=== PATIENT | male | born 1950 | race Caucasian/White ===

== ENCOUNTER 2020-07-23 06:14 | Observation (INO) ==
--- NOTE | 2020-06-24 16:26 | PAT Medication Instructions ---
Medication Instructions Date of Service June 24, 2020 Home Medications aspirin [Baby Aspirin] 81 mg PO QAM atorvastatin 40 mg PO PM metoprolol tartrate 25 mg PO BID multivitamin 1 cap PO QAM DO NOT take the morning of surgery multivitamin 1 cap PO QAM Take morning of surgery With a small sip of water, OTHERWISE NOTHING TO EAT OR DRINK AFTER MIDNIGHT: aspirin [Baby Aspirin] 81 mg PO QAM metoprolol tartrate 25 mg PO BID Take evening before surgery atorvastatin 40 mg PO PM metoprolol tartrate 25 mg PO BID Other Notes If you have any questions please call us at [phone] or [phone] or [phone] or [phone]
--- NOTE | 2020-06-26 11:10 | Anesthesiology Consultation ---
Date of Service June 26, 2020 Assessment & Plan (1) Encounter for pre-operative examination: COVID Status: As of 06/26 assessment, patient denies travel to endemic area, known exposure/sick contacts, or symptoms of COVID19. Patient instructed that they and their household members must follow strict social distancing guidelines, wear a mask in public and avoid travel for 14 days prior to surgery. Preoperative COVID19 testing to be completed prior to surgery per surgeon's a rrangements. Patient made aware to self-isolate as much as possible between COVID testing and surgery. Cardiology Clearance 06/16/20 = " he can easily do between 410 METS of activity with no exertional symptoms. Blood pressure earlier today was well controlled at [facility] office, mildly elevated here. Patient states that his blood pressure at home normally runs between [id number] systolic and 7080 diastolics. I have advised patient to continue to monitor blood pressure at home and call office next week with blood pressure readings. No further cardiac work-up needed prior to total knee arthroplasty." Chart Review Chart Review: Acceptable Risk for Surgery and Patient seen in Pre Admission Testing Teaching & Discussion Instructed NPO after midnight before surgery, except medications with 15 cc of water. Medication instructions provided according to the PAT guidelines. History Surgery Operation Date: 07/23/20 11:35 Proposed Procedures p Left Total Knee Arthroplasty - Immanuel Coronel MD Height/Weight Height: 5 ft 8 in Weight: 116.4 kg Allergies Allergy/AdvReac Type Severity Reaction Status Date / Time No Known Allergies Allergy Verified 06/24/20 09:47 Medications Home Medications Medication Instructions Recorded Confirmed Last Taken aspirin [Baby Aspirin] 81 mg PO QAM 06/24/20 06/24/20 Unknown atorvastatin 40 mg PO PM 06/24/20 06/24/20 Unknown metoprolol tartrate 25 mg PO BID 06/24/20 06/24/20 Unknown multivitamin 1 cap PO QAM 06/24/20 06/24/20 Unknown cetirizine 5 mg PO DAILY PRN 06/26/20 06/26/20 Unknown Past Medical History Medical History Gallstone History of Mohs micrographic surgery for skin cancer on chest Hyperlipidemia Hypertension Osteoarthritis Sleep apnea Very mild per patient, does not use CPAP Exercise / Class Metabolic Activity II 4-5 Yardwork/Stairs/Walk up hill (Denies CP or SOB with 1 FOS) Past Surgical History Surgical History History of cardiac cath 2001- [facility] 4 stents placed- unsure if bare metal or drug eluting History of cervical spinal surgery Fusion, 2007 History of colonoscopy History of excision of pilonidal cyst History of tonsillectomy and adenoidectomy History of tooth extraction Past Anesthesia History No Hx of Anesthesia Complications and No Family Hx of Anesthesia Complications History of PONV No Hx of PONV and No Hx of Motion Sickness Social History Smoking Status: Former smoker Do You Dip or Chew Tobacco: No (history of) Smoking End Date: quit at 20 years old Hx Alcohol Use: No Hx Substance Use: No substance use type: does not use Review of Systems Pt denies any recent chest pain, shortness of breath, palpitations, cough, fever, URI, or uncontrolled acid reflux. Physical Exam Vital Signs BP: 144/84 (monitoring at home for cardiology currently) P: 63bpm SPO2: 98% RA T: 98.0 F R: 16 Constitutional + obese ENMT Mouth: + dentures (partials, but does not wear) and + chipped teeth; no loose teeth Thyromental Distance: > or= 3.5 Finger Breadths Mallampati Class: I Neck + thick neck and + limited neck extension (mild) Respiratory normal respiratory effort Auscultation: lungs clear to auscultation bilaterally Cardiovascular Rate/Rhythm: regular rate and regular rhythm Heart Sounds: no murmur Testing Laboratory Results PT 10.9 Seconds (9.0-12.0) 06/26/20 11:53 INR 1.0 (0.9-1.1) 06/26/20 11:53 APTT 29.1 Seconds (21.0-31.0) 06/26/20 11:53 Hemoglobin A1c 5.5 % (4.5-5.6) 06/26/20 11:53 Urine Color Dark Yellow 06/26/20 11:53 Urine Appearance Clear (Clear) 06/26/20 11:53 Urine pH 7.5 (4.5-7.5) 06/26/20 11:53 Ur Specific [place] 1.016 (1.000-1.030) 06/26/20 11:53 Urine Protein Negative (Negative) 06/26/20 11:53 Urine Glucose (UA) Negative (Negative) 06/26/20 11:53 Urine Ketones Negative (Negative) 06/26/20 11:53 Urine Nitrite Negative (Negative) 06/26/20 11:53 Ur Leukocyte Esterase Negative (Negative) 06/26/20 11:53 Blood Type O Negative 06/26/20 11:53 Antibody Screen NEGATIVE 06/26/20 11:53 05/26/20 WBC: 7.26 H/H: 14.9/46.6 PLATELETS: 214 SODIUM: 140 POTASSIUM: 5.1 CHLORIDE: 103 CO2: 27 BUN: 18 CREATININE: 1.10 GLUCOSE: 93 Electrocardiogram Date: 06/16/20 Findings: + NSR @ (63bpm) Chest X-Ray Date: 06/26/20 Findings: + NAD Echocardiogram Date: 06/07/17 EF: 60% LV Function: normal RWMA: + none Other Findings: + LVH (mild concentric) and + diastolic dysfunction (grade I) Valvular Disease: + no significant valvular disease
[2020-06-26 12:19] LABS: Appearance Urine Clear (Clear); Bilirubin Urine Negative (Negative); Blood Urine Negative (Negative); Color Urine Dark Yellow; Glucose Urine UA Negative (Negative); Ketones Urine Negative (Negative); Leukocyte Esterase Urine Negative (Negative); Nitrite Urine Negative (Negative); Protein Urine Negative (Negative); Specific Gravity Urine 1.016 (1.000-1.030); Urobilinogen Urine Negative (Negative); pH Urine 7.5 (4.5-7.5)
--- NOTE | 2020-06-26 12:22 | XRay Report ---
XR chest Pre-admission PA/Lat HISTORY: Preop. COMPARISON: None. FINDINGS: The lungs are clear. Cardiac silhouette is normal in size. No pleural effusions. No pneumot horax. Cervical spinal fusion hardware is noted. IMPRESSION: No acute process. ACT 112: Negative or not required by law. Electronically signed by: Matty Bernal M.D. 06/26/2020 12:21 PM
[2020-06-26 12:27] LABS: Partial Thromboplastin Time 29.1 Seconds (21.0-31.0); Prothrombin Time 10.9 Seconds (9.0-12.0)
[2020-06-26 12:28] LABS: Estimated Average Glucose 111 mg/dl; Hemoglobin A1C 5.5 % (4.5-5.6)
--- NOTE | 2020-07-22 19:14 | History and Physical Report ---
DATE OF ADMISSION: 07/23/2020 CHIEF COMPLAINT: Chronic left knee pain and instability. HISTORY OF PRESENT ILLNESS: This is a 70-year-old male patient of Dr. Coronel'vaughn complaining of chronic left knee pain and instability, longstanding, now progressively getting worse. The patient has failed conservative treatment including anti-inflammatories, home exercise program and the use of a brace. The patient has increased pain with weightbearing activities and his pain does interfere with his activities of daily living. The patient has been diagnosed with end-stage osteoarthritis per clinical and radiographic exams and wishes to proceed with a left total knee arthroplasty. PAST MEDICAL HISTORY: Hypertension, hypercholesterolemia, osteoarthritis, neck problems, sciatica, obesity, dental issues. SOCIAL HISTORY: A lifelong smoker, quit in 1969. No alcohol use since 2003. PAST SURGICAL HISTORY: Pilonidal cyst, stenosis back surgery at the C-spine level, tonsillectomy and left ankle fracture. FAMILY HISTORY: Noncontributory. REVIEW OF SYSTEMS: Chronic left knee pain and instability. Otherwise, denies any shortness of breath, chest pain, nausea, vomiting or other joint complaints. MEDICATIONS: 1. Zocor 20 mg daily. 2. Metoprolol 25 mg daily. 3. Zetia 10 mg daily. 4. Aspirin 325 mg daily. 5. Zyrtec as needed. ALLERGIES: No known drug allergies. PHYSICAL EXAMINATION: GENERAL: Well-developed, well-nourished 70-year-old male in no acute distress. He is alert and oriented x3 and pleasant. HEENT: Normocephalic, atraumatic. Extraocular motions are intact. Pupils are equal and reactive to light. HEART: Regular rate and rhythm, no murmurs. LUNGS: Clear. ABDOMEN: Soft, nontender, bowel sounds present. EXTREMITIES: Left lower extremity reveals a neutral alignment. Range of motion 0-120. Medial joint line tenderness, positive Rose, positive mild effusion, 5/5 strength with pain. NEUROLOGICALLY AND NEUROVASCULARLY: He is intact in his left lower extremity. DIAGNOSES: Left knee end-stage osteoarthritis, hypertension, hypercholesterolemia, osteoarthritis, neck problems, sciatica, obesity, dental issues. PLAN: The patient was advised of his diagnosis. Indications, risks, benefits, postop course have all been reviewed. The patient wished to proceed with a left total knee arthroplasty. Necessary consent forms, preoperative testing and clearances will be obtained. [facility]
[~2020-07-23 06:14] MED LIST: ACETAMINOPHEN 500 MG TAB PO SCH; CeleBREX 200 MG CAP PO SCH; FAMOTIDINE 20 MG TAB PO SCH; GABAPENTIN 300 MG CAP PO SCH; LR 500ML BOLUS, THEN 15ML/HR IV SCH; METOCLOPRAMIDE HCL 10 MG TABLET PO SCH; ROPIVACAINE 0.5% HCL/PF 150 MG, BUPIVACAINE 0.5% MPF 30 ML, EPINEPHrine 30MG/30ML (OR U... INFIL SCH; TRANEXAMIC ACID 1,000 MG **IV Intra-op IV SCH; TRANEXAMIC ACID 1,000 MG **IV Pre-op IV SCH; dexAMETHasone 4 MG TAB PO SCH
[2020-07-23] MEDS ORDERED: ROPIVACAINE 0.5% 5 MG/ML 30 ML VIAL ONE (06:37)
[2020-07-23] MEDS ORDERED: BUPIVACAINE 0.5 % 5 MG/1 ML PF 10ML VIAL ONE (06:37)
[2020-07-23] MEDS ORDERED: MIDAZOLAM HCL 1 MG/ML 2ML VIAL ONE (06:39)
[2020-07-23] MEDS ORDERED: PROPOFOL IV EMULSION 10 MG/ML 20 ML VIAL IV ONE (06:46)
[2020-07-23] MEDS ORDERED: ONDANSETRON INJ 2 MG/ML 2 ML VIAL ONE (06:46)
[2020-07-23] MEDS ORDERED: GLYCOPYRROLATE 0.2 MG/ML VIAL ONE (06:46)
[2020-07-23] MEDS ORDERED: LIDOCAINE HCL 2% 2 ML VIAL/AMP(20MG/ML) INFIL ONE (06:46)
--- NOTE | 2020-07-23 07:24 | History & Physical Bridge Note ---
Date of Service July 23, 2020 History & Physical Bridge Note I have examined the patient, reviewed the History & Physical and in the interval since the performance of the History & Physical I have noted the following changes of clinical significance: no changes noted
[2020-07-23] MEDS ORDERED: HYDROmorphone INJ 2 MG/ML SYR/VIAL IV PRN (08:10)
[2020-07-23] MEDS ORDERED: ePHEDrine sulfate 50 MG/ML AMP IV PRN (08:10)
[2020-07-23] MEDS ORDERED: ONDANSETRON INJ 2 MG/ML 2 ML VIAL IV PRN ×2 (08:10→12:31)
[2020-07-23] MEDS ORDERED: METOCLOPRAMIDE HCL INJ 5 MG/ML 2 ML VIAL IV PRN (08:10)
[2020-07-23] MEDS ORDERED: PROMETHAZINE HCL 12.5 MG in SODIUM CHLORIDE 0.9% 50 ML IV PRN (08:10)
[2020-07-23] MEDS ORDERED: ATROPINE SULFATE 0.1 MG/ML 10ML SYR IV PRN (08:10)
[2020-07-23] MEDS ORDERED: fentaNYL citrate 100 MCG/2 ML VIAL IV PRN (08:10)
[2020-07-23] MEDS ORDERED: BACITRACIN INJ 50,000 UNIT VIAL ONE (08:25)
[2020-07-23] MEDS ORDERED: ORTHO JOINT ANESTHETIC ONE (08:25)
[2020-07-23] MEDS: ceFAZolin 2000MG 2,000 MG/15 ML SYR IV SCH ×3 (08:45→15:15)
[2020-07-23] MEDS ORDERED: ePHEDrine sulfate 50 MG/ML SYR ONE (09:13)
--- NOTE | 2020-07-23 10:40 | Operative Report ---
Post Operative Report Pre & Post Diagnosis Operation Date: 07/23/20 08:40 Pre-Op Diagnosis: Left Knee Osteoarthritis, obesity BMI 38.6 Post-Op Diagnosis: Left Knee Osteoarthritis, obesity BMI 38.6 I identified the patient and participated in the time-out.: Yes Procedure Operation Date: 07/23/20 08:40 Actual Procedures p Left Total Knee Arthroplasty(Left), lateral release- Immanuel Coronel MD Surgeon Immanuel Coronel MD Independent Consultant Matthew TAM Estimated Blood Loss 5 Findings Consistent with Post-Op Diagnosis Specimens Bone cuts Drains 2 Hemovac Anesthesia Type MAC Spinal Regional Complications none Disposition Accompanied Patient To Recovery: No Disposition: Recovery Room Indications 70-year-old male with chronic progressive osteoarthritis of both his knees. Left is worse than right. Left knee has tricompartmental osteoarthritis [id number] medial compartment subluxation inferior medial on the tibia. Patient has large patellar osteophytes. Description of Procedure Patient taken to the operating room placed supine on the operating table and anesthetized under spinal MAC regional anesthesia. Exam under anesthesia demonstrated 15 degree flexion contracture flexion to 115 degrees moderate effusion moderate obesity of the leg. A pneumatic tourniquet was placed about the thigh of the left lower extremity. The left lower extremity was prepped and draped in usual fashion. Leg was elevated exsanguinated with an Esmarch bandage and the pneumatic was raised to 325 mm mercury. An anterior incision was made across the left knee. The skin was incised longitudinally subcutaneous flaps were elevated and an incision was made through the medial retinaculum extending up into the mid third of the quadriceps tendon and extended down to the medial tibial tubercle. Intra-articular findings demonstrated [id number] medial and lateral compartment with large patellofemoral osteophytes. 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 The knee was exposed by excising the infrapatellar fat pad, excising the meniscal remnants. Any inflamed synovial tissue was resected. The fat pad over the anterior femur was resected for placement of the component in that area. The lateral synovial bands were release. Appropriate releases were performed to balance ligaments. The femur was exposed. The custom femoral cutting block was pinned in position. The distal femoral cutting block was applied. The distal femoral cut was made with the oscillating saw. The size 10, 4-in-1 cutting block was placed. The anterior and posterior chamfer cuts were made. The knee was extended and a subperiosteal peel lateral release was performed around the patella. The patella width was measured and width was reproduced using freehand cut technique. The 35 x 9 millimeter symmetrical patella was used. 3 drill holes are made for the pegs. The tibia was exposed. A custom tibial cutting block was positioned and drill holes were made for the cutting guide. Cutting guide was placed and the proximal cut was made with the oscillating saw. All osteophytes were resected. The lamina client experience specialist was used to assess ligamentous balance and the ligaments were balanced in extension and flexion. This required a medial and posterior medial release. The tibia was reexposed and measured for a size G tibial component. This was externally rotated in line with the tibial tubercle and the fixation pins were drilled. The proximal tibia was fashioned with the drill and punch. The size 10 CR femoral trial was inserted. The trial MC inserts were used. The 12 mm insert gave balanced ligaments through full range of motion. The patella tracked laterally so I did a lateral release l eaving the synovium intact and the patella tracked centrally.. the trials were removed. The orthomix anesthetic cocktail was injected per protocol. The knee was then copiously irrigated with pulsatile lavage antibiotic solution with bacitracin. The final components were cemented with Simplex cement. The final components were [employer] persona size 10 CR standard left femur, G tibia, 12 MC polyethylene tibial insert, 35 x 9 symmetrical patella.. While the cement cured with the knee in full extension the Betadine soak was used per protocol. After the cement cured, the knee joint was copiously irrigated with antibiotic solution with bacitracin. 2 drains were brought out laterally and connected to a Hemovac. The quadriceps tendon and medial retinaculum were closed with interrupted [id number] #1 Vicryl sutures. The knee was taken through a full range of motion and repair was secure. Knee had 0 through 130 degrees range of motion. The subcutaneous tissues were closed with 2-0 Vicryl sutures and skin was closed with lavonne. Sterile dressings were applied and the patient tolerated the procedure well. Matthew TAM my physician assistant office manager, assisted in soft tissue retraction instrument management leg positioning the closure and will participate in the postoperative care of the patient. I attest to the content of the Intraoperative Record and any orders documented therein. Any exceptions are noted below.
--- NOTE | 2020-07-23 11:32 | XRay Report ---
XR knee LT 1 or 2V routine CLINICAL HISTORY: Surgical Post Op COMPARISON: None. DISCUSSION: There are postsurgical changes of a total left knee arthroplasty and patellar resurfacing . The femoral tibial components appear well seated. Overlying skin lavonne and surgical drains are vi sualized. IMPRESSION: Postsurgical changes of a total left knee arthroplasty. ACT 112: Negative or not required by law. Electronically signed by: Kike Middleton M.D. 07/23/2020 11:31 AM
--- NOTE | 2020-07-23 11:48 | Anesthesiology Progress Note ---
Date of Service July 23, 2020 Anesthesia Post Procedure Vital Signs Vital Signs: Temp Pulse Pulse Resp BP BP Pulse Ox 07/23/20 11:40 36.3 C L 88 15 121/78 93 07/23/20 11:30 88 16 121/82 93 07/23/20 11:20 87 16 124/80 93 07/23/20 11:10 92 H 17 121/76 93 07/23/20 11:05 37.2 C 95 H 26 H 120/77 94 07/23/20 07:14 87 18 163/99 H 97 07/23/20 06:38 37.0 C 76 18 153/91 H 98 Pain Intensity Left Knee: Pain Intensity: 0 Transfer of Care Handoff Completed per policy Notes Mental Status: alert / awake / arousable and participated in evaluation Patient Amnestic to Procedure: Yes Nausea / Vomiting: adequately controlled Pain: adequately controlled Airway Patency, RR, SpO2: stable & adequate BP & HR: stable & adequate Hydration State: stable & adequate Neuraxial Anesthesia: was administered and sensory block is resolving Anesthetic Complications: no major complications apparent
[2020-07-23] MEDS ORDERED: HYDROmorphone INJ 0.5 MG/0.5 ML SYR IV PRN (12:31)
[2020-07-23] MEDS ORDERED: oxyCODONE HCL IR 5 MG TAB (IMMEDIATE RELEASE) PO PRN (12:31)
[2020-07-23] MEDS ORDERED: CETIRIZINE HCL 10 MG TABLET PO PRN (12:31)
[2020-07-23] MEDS ORDERED: MAGNESIUM HYDROXIDE SUSP 30 ML UDC PO PRN (12:31)
[2020-07-23] MEDS ORDERED: NALOXONE HCL 0.4 MG/1 ML VIAL/CARP IV PRN (12:31)
[2020-07-23] MEDS ORDERED: bisacodyL 10 MG SUPP PR PRN (12:31)
--- NOTE | 2020-07-23 13:05 | Consultation ---
Date of Consultation July 23, 2020 Assessment & Plan (1) Status post total knee replacement, left: S/P L TKA by Dr. Coronel POD #0 EBL: 5 ml hemovac: 20ml tolerated procedure well pain/wound management per ortho activity and therapy as directed by ortho encourage incentive spirometry monitor H&H (preop hgb 14.9) (2) CAD (coronary artery disease): no CP or SOB continue ASA, statin, metoprolol (3) Hypertension: BP controlled continue metoprolol, monitor (4) Hyperlipidemia: continue statin DVT ppx: ASA BID per ortho Disposition: per primary Follow up: PCP Dr. Sofia upon discharge Pt was seen and examined in collaboration with Dr. Hoffman, please see addendum Starting pt will be under the care of Dr. Storey Thank you for this consultation. We will follow the patient with you during their hospital stay. You can reach a member of the [facility] Hospitalist Team 08/05 via pager @ [phone]. Supervising Physician Co-Signing Physician Notes Attending addendum: The patient was seen and examined in medical floor He is a status post left knee arthroplasty He does not have any complaint of knee pain and the numbness involving the left lower extremity Denies any other significant symptoms ON Examination He is obese and sitting at the edge of the bed without any distress Hemodynamically stable Chest-clear to auscultate bilaterally Heart-S1-S2, regular Abdomen-benign Extremities-trace edema bilaterally His labs, imaging studies and EKG reviewed Remains stable medically Agree with assessment and plan as outlined above by BAHMAN Lindquist Dr History of Present Illness Requesting Physician: Dr. Coronel Reason for Consultation: Postop medical management Attending Physician: Immanuel Coronel MD History of Present Illness This is a 70-year-old male with significant past medical history of CAD with history of PCI in 2002, HTN, HLD who presents for elective total knee arthroplasty secondary to osteoarthritis. He tolerated procedure well. is at bedside. He offers no postoperative complaints or concerns. He denies any fever, chills, sweats, lightheadedness, dizziness, chest pain, shortness breath, cough, nausea, vomiting, abdominal pain, change in bowel or urinary habits. He does follow with [facility] cardiology. He has been doing well from a cardiac standpoint and remains very active. He had an echocardiogram 05/2017 which revealed EF 60% with grade 1 diastolic dysfunction. He uses a recumbent bike 3 times a week without experiencing exertional symptoms. He also admits to mild history of obstructive sleep apnea but he does not use CPAP. His blood pressure is well controlled on metoprolol. Allergies Allergy/AdvReac Type Severity Reaction Status Date / Time No Known Allergies Allergy Verified 07/23/20 06:35 Home Medications Home Medications Medication Instructions Recorded Confirmed Type aspirin [Baby Aspirin] 81 mg PO QAM 06/24/20 07/23/20 History metoprolol tartrate 25 mg PO BID 06/24/20 07/23/20 History multivitamin 1 cap PO QAM 06/24/20 07/23/20 History cetirizine 5 mg PO DAILY PRN 06/26/20 07/23/20 History atorvastatin 40 mg PO HS 07/23/20 07/23/20 History Patient History Medical History (Updated 07/23/20 @ 13:00 by Rowena Fernandes PA-C) CAD (coronary artery disease) Gallstone History of Mohs micrographic surgery for skin cancer on chest Hyperlipidemia Hypertension Osteoarthritis Sleep apnea Very mild per patient, does not use CPAP Surgical History (Updated 07/23/20 @ 13:00 by Rowena Fernandes PA-C) History of cardiac cath 2001- [place] 4 stents placed- unsure if bare metal or drug eluting History of cervical spinal surgery Fusion, 2007 History of colonoscopy History of excision of pilonidal cyst History of tonsillectomy and adenoidectomy History of tooth extraction Family History Mother Cancer Colon and uterus Father Coronary heart disease Hypertension Social History Smoking Status: Former smoker Smoking End Date: quit at 20 years old; Second Hand Exposure: Yes (as a child, and worked at [employer]); Do You Dip or Chew Tobacco: No (history of); Hx Alcohol Use: No Hx Substance Use: No Preferred Language: Egyptian Communication Ability: Effective Beliefs That Will Affect Care: None Current Living Situation: Spouse Current Living Situation Comment: Feels Safe at Home: Yes Safety Concerns: Feels Safe At This Time Assistive Devices: Glasses and Walker Assistive Devices Comment: partial but doesn't use it Review of Systems Review of Systems: All systems reviewed & are unremarkable except as noted in HPI & below Physical Exam Physical Exam: Constitutional: WD/WN, M, vitals as above, NAD, sitting up in bed, pleasant, conversing easily Head: Normocephalic, Atraumatic Eyes: PERRL, conjunctivae normal, anicteric sclerae ENMT: external ear and nose normal, oropharynx normal Neck: trachea midline, no thyromegaly normal visual inspection Respiratory: normal respiratory effort, lungs clear to auscultation, no wheeze, rales, rhonchi. Normal insp/exp effort, no accessory muscle use Cardiovascular: RRR, no murmur, no edema Vessels: no JVD or carotid bruit Chest: normal inspection of chest Abdomen: normal bowel sounds, soft, nontender, no hepatosplenomegaly Musculoskeletal: no cyanosis or clubbing, L TKA dressing CDI, hemovac in place Skin: no rashes, warm and dry normal turgor Neurologic: PERRL, EOMI, accommodation nl, no face palsy, no dysarthria CN's II-XI intact bilaterally and moves all extremities Psychiatric: A+Ox3, euthymic affect Lymphatic: no cervical or axillary lymphadenopathy : deferred Results & Data ([facility]) Vital Signs (Past 12 Hours) Vital Signs Temp Pulse Pulse Pulse Resp BP BP 07/23/20 12:05 36.9 C 68 16 129/78 07/23/20 11:50 87 14 122/79 07/23/20 11:40 36.3 C L 88 15 121/78 07/23/20 11:30 88 16 121/82 07/23/20 11:20 87 16 124/80 07/23/20 11:10 92 H 17 121/76 07/23/20 11:05 37.2 C 95 H 26 H 120/77 07/23/20 07:14 87 18 163/99 H 07/23/20 06:38 37.0 C 76 18 153/91 H Pulse Ox 07/23/20 12:05 92 07/23/20 11:50 93 07/23/20 11:40 93 07/23/20 11:30 93 10/08/20 11:20 93 07/23/20 11:10 93 07/23/20 11:05 94 07/23/20 07:14 97 07/23/20 06:38 98 Laboratory Results Preoperative lab work 06/26/2020 A1c: 5.5 05/26 CMP: BUN 18, creatinine 1.1, sodium 140, K5.1, glucose 93 Diagnostic Findings CXR: FINDINGS: The lungs are clear. Cardiac silhouette is normal in size. No pleural effusions. No pneumothorax. Cervical spinal fusion hardware is noted. IMPRESSION: No acute process. L knee xray: IMPRESSION: Postsurgical changes of a total left knee arthroplasty. Medications Administered Discontinued Medications Acetaminophen (Acetaminophen 500 Mg Tab) 1,000 mg PO PREOP CHARLY Stop: 07/23/20 18:00 Last Admin: 07/23/20 06:55 Dose: 1,000 mg Documented by: [id number] Bacitracin (Bacitracin Inj 50,000 Unit Vial) Confirm Administered Dose 50,000 units .ROUTE .[facility] Stop: 07/23/20 08:26 Last Admin: 07/23/20 10:35 Dose: 50,000 units Documented by: [id number] Celecoxib (Celebrex 200 Mg Cap) 200 mg PO PREOP CHARLY Stop: 07/23/20 18:00 Last Admin: 07/23/20 06:56 Dose: 200 mg Documented by: [id number] Dexamethasone (Dexamethasone 4 Mg Tab) 8 mg PO PREOP CHARLY Stop: 07/23/20 18:00 Last Admin: 07/23/20 06:55 Dose: 8 mg Documented by: [id number] Famotidine (Famotidine 20 Mg Tab) 20 mg PO PREOP CHARLY Stop: 07/23/20 18:00 Last Admin: 07/23/20 06:56 Dose: 20 mg Documented by: [id number] Gabapentin (Gabapentin 300 Mg Cap) 300 mg PO PREOP CHARLY Stop: 07/23/20 18:00 Last Admin: 07/23/20 06:56 Dose: 300 mg Documented by: [id number] Lactated Ringer's (Lr) 1,000 mls @ 15 mls/hr IV .Q24H CHARLY Stop: 07/23/20 18:00 Last Infusion: 07/23/20 08:47 Dose: 0 mls/hr Documented by: [id number] Admin: 07/23/20 06:48 Dose: 15 mls/hr Documented by: [id number] Cefazolin Sodium (Ancef 2000mg) 2,000 mg in 15 mls @ 3.75 mls/min IV PREOP CHARLY; Protocol Stop: 07/23/20 18:00 Last Admin: 07/23/20 08:45 Dose: 3.75 mls/min Documented by: [id number] Tranexamic Acid (Tranexamic Acid / 0.7% Nacl) 1,000 mg in 100 mls @ 600 mls/hr IV TODAY@[facility] Stop: 07/23/20 18:00 Last Infusion: 07/23/20 08:46 Dose: 0 mls/hr Documented by: [id number] Admin: 07/23/20 08:20 Dose: 600 mls/hr Documented by: [id number] Tranexamic Acid (Tranexamic Acid / 0.7% Nacl) 1,000 mg in 100 mls @ 600 mls/hr IV TODAY@06[facility] Stop: 07/23/20 18:00 Last Infusion: 07/23/20 12:33 Dose: 0 mls/hr Documented by: [id number] Admin: 07/23/20 10:25 Dose: 600 mls/hr Documented by: [id number] Ropivacaine 150 mg/Bupivacaine HCl 30 ml/Epinephrine HCl 0.15 mg/Ketorolac Tromethamine 30 mg/Dexamethasone 4 mg/ Ketamine HCl 10 mg/ Clonidine HCl 100 mcg/ Sodium Chloride 93.35 mls @ 0 mls/hr INFIL TODAY@06[facility] Stop: 07/23/20 06:01 Last Admin: 07/23/20 10:35 Dose: 93.35 mls/hr Documented by: [id number] Metoclopramide HCl (Metoclopramide Hcl 10 Mg Tablet) 10 mg PO PREOP CHARLY Stop: 07/23/20 18:00 Last Admin: 07/23/20 06:56 Dose: 10 mg Documented by: [id number] Miscellaneous (Ortho Joint Anesthetic ) Confirm Administered Dose 1 ea .ROUTE .[facility] Stop: 07/23/20 08:26 Last Admin: 07/23/20 10:35 Dose: Not Given Documented by: [id number] ECG Rate (beats per minute): 63 Rhythm: normal sinus
[2020-07-23] MEDS: ACETAMINOPHEN 500 MG TAB PO SCH ×2 (14:13→21:41)
[2020-07-23] MEDS: SODIUM CHLORIDE 0.9% 1000ML 1,000 ML IV SCH ×2 (14:13→23:56)
[2020-07-23] MEDS: FERROUS GLUCONATE 324 MG TAB PO SCH (17:47)
[2020-07-23] MEDS: DOCUSATE SODIUM 100 MG CAP PO SCH (20:48)
[2020-07-23] MEDS: ASPIRIN 81 MG ECTAB PO SCH (20:48)
[2020-07-23] MEDS: METOPROLOL TARTRATE 25 MG TAB PO SCH (20:49)
[2020-07-23] MEDS ORDERED: ATORVASTATIN 40 MG TAB PO SCH (21:00)
[2020-07-23] MEDS ORDERED: SENNA 8.6 MG TAB PO SCH (21:00)
[2020-07-24] MEDS: ceFAZolin 2000MG 2,000 MG/15 ML SYR IV SCH (00:03)
[2020-07-24] MEDS: ACETAMINOPHEN 500 MG TAB PO SCH ×2 (05:57→13:45)
[2020-07-24 07:06] LABS: Hematocrit (blood only) 41.7 % (42-52); Hemoglobin 12.9 g/dL (14.0-18.0); Mean Corpuscular Hemoglobin 26.9 pg (25-34); Mean Corpuscular Hgb Conc 30.9 g/dL (32-36); Mean Corpuscular Volume 87.1 fL (80-100); Mean Platelet Volume 8.7 fL (7.4-10.4); Platelet Count 247 K/uL (130-400); RDW Coefficient of Variation 14.1 % (11.5-14.5); RDW Standard Deviation 44.8 fL (36.4-46.3); Red Blood Count 4.79 M/uL (4.7-6.1); White Blood Count 15.25 K/uL (4.8-10.8)
[2020-07-24 07:35] LABS: BUN Creatinine Ratio 18.7 (10-20); Calcium 8.5 mg/dl (8.5-10.1); Creatinine Clr Calc Pharmacy 73.8 ml/min; Est GFR (African American) 75.4; Potassium 4.4 mmol/L (3.5-5.1)
[2020-07-24] MEDS: ASPIRIN 81 MG ECTAB PO SCH (08:33)
[2020-07-24] MEDS: DOCUSATE SODIUM 100 MG CAP PO SCH (08:33)
[2020-07-24] MEDS: FERROUS GLUCONATE 324 MG TAB PO SCH (08:33)
[2020-07-24] MEDS: METOPROLOL TARTRATE 25 MG TAB PO SCH (08:33)
--- NOTE | 2020-07-24 08:37 | Orthopedic Progress Note ---
Date of Service July 24, 2020 Assessment & Plan (1) Status post total knee replacement, left: POD #1, Left TKA PT/ OT DVT proph- ASA D/C planning- Home with OPPT today if does well in PT and drain output is < 125cc's at 1500 shift. As per medicine Admission and Anticipated Discharge Date Admission Date: July 23, 2020 Subjective POD #1, Feeling well. Denies SOB, CP, N/V, dizziness. Wishes for OPT on discharge. Results & Data ([facility]) Vital Signs (Past 12 Hours) Vital Signs Temp Pulse Resp BP Pulse Ox 07/24/20 07:50 36.5 C 69 16 125/75 96 07/24/20 03:50 36.6 C 69 20 114/72 94 07/23/20 23:34 36.8 C 76 18 118/73 94
[2020-07-24] MEDS ORDERED: MULTIVITAMIN TAB PO SCH (09:00)
--- NOTE | 2020-07-30 11:44 | Discharge Summary ---
Date of Service July 30, 2020 Admission HPI Per Admitting Provider This is a 70-year-old male patient of Dr. Coronel's complaining of chronic left knee pain and instability, longstanding, now progressively getting worse. The patient has failed conservative treatment including anti-inflammatories, home exercise program and the use of a brace. The patient has increased pain with weightbearing activities and his pain does interfere with his activities of daily living. The patient has been diagnosed with end-stage osteoarthritis per clinical and radiographic exams and wishes to proceed with a left total knee arthroplasty. Admission Exam Per Admitting Provider PHYSICAL EXAMINATION: GENERAL: Well-developed, well-nourished 70-year-old male in no acute distress. He is alert and oriented x3 and pleasant. HEENT: Normocephalic, atraumatic. Extraocular motions are intact. Pupils are equal and reactive to light. HEART: Regular rate and rhythm, no murmurs. LUNGS: Clear. ABDOMEN: Soft, nontender, bowel sounds present. EXTREMITIES: Left lower extremity reveals a neutral alignment. Range of motion 0-120. Medial joint line tenderness, positive Rose, positive mild effusion, 5/5 strength with pain. NEUROLOGICALLY AND NEUROVASCULARLY: He is intact in his left lower extremity. Principal Diagnosis Left Knee Djd Discharge Data Allergies Allergy/AdvReac Type Severity Reaction Status Date / Time No Known Allergies Allergy Verified 07/23/20 06:35 Consultations 07/20/20 09:25 Consult Hospitalist Routine 07/23/20 12:31 Consult Case Management - Discharge Planning Routine Procedures Performed Operation Date: 07/23/20 08:40 Actual Procedures p Left Total Knee Arthroplasty(Left) - Immanuel Coronel MD Ordered Studies 07/23/20 05:00 US - OR guided needle placemen Routine Hospital Course (1) Status post total knee replacement, left: Assessment & Plan (1) Status post total knee replacement, left: POD #1, Left TKA PT/ OT DVT proph- ASA D/C planning- Home with OPPT today if does well in PT and drain output is < 125cc's at 1500 shift. As per medicine Admission and Anticipated Discharge Date Admission Date: July 23, 2020 Subjective POD #1, Feeling well. Denies SOB, CP, N/V, dizziness. Wishes for OPT on discharge. Results & Data ([facility]) Vital Signs (Past 12 Hours) Vital Signs Temp Pulse Resp BP Pulse Ox 07/24/20 07:50 36.5 C 69 16 125/75 96 07/24/20 03:50 36.6 C 69 20 114/72 94 07/23/20 23:34 36.8 C 76 18 118/73 94 Total Time Total Time Spent Total Time Spent (In Minutes): 5 Discharge Plan Discharge Items Patient Disposition: Home - Self-Care Reason For Visit: Left Knee Osteoarthritis Discharge Diagnosis: Left Knee Osteoarthritis Activity: Per Instructions section Weightbearing: Left weightbearing Weightbearing Comment: as tolerated with walker Non-emergency contact: Surgeon Call non-emergency contact if: your pain is not controlled, your temperature is above 101.5, your wound has increased redness and your wound has increased drainage Follow-up/Referrals: Niki Sofia DO [Primary Care Provider] - Diet: Heart Healthy Addtl Attending Provider Instructions: ACTIVITY RECOMMENDATIONS: SELF CARE INSTRUCTIONS AFTER TOTAL KNEE REPLACEMENT A. You may need to continue a physical therapy program after discharge from the hospital. There are several options available to you. Your doctor will assist you in selecting the best one for you. 1. An out-patient facility 2 to 3 times a week for therapy or home therapy. 2. Continue working on all exercises taught to you in the hospital. Your goals should be to increase bending of your knee to 90 degrees and beyond and to fully straighten your knee. B. You may progress at your own pace from walking with a walker or crutches to a cane; then to no assistive devices. C. Make walking a part of your daily routine. Be up as much as comfortable with rest periods throughout the day. Rest with leg elevation is very important. Use the ice wrap frequently for the first 3-4 weeks. D. There are no restrictions on activities. You may ride in a car, shop, participate in take out waiter and all social activities. E. Wear the long elastic stockings (JOSÉ ANTONIO hose) 20 hours a day for 2 weeks after surgery. They can be removed several times a day for laundering and for a bath. F. You may shower, no tub baths until cleared by your doctor. SPECIAL CARE INSTRUCTIONS: VERY IMPORTANT TO READ AND REVIEW A. There are a few signs you need to watch for after you are home. Call [facility] [place] if you notice any of the followin. Increased severe knee pain. Some pain is expected especially when you exercise. 2. Increased swelling in your leg or knee; pain or swelling of the calf muscle in either lower leg. 3. Any fluid drainage from the incision. 4. Shortness of breath or chest pain. B. Please call [facility] at if you have any concerns or questions about your operation or recovery. The doctor or his nurse will return your call promptly. C. You must take antibiotics before dental work, bladder, bowel or other surgery. Your doctor will provide you with a permanent care to carry describing this precaution. IMPORTANT: * REMEMBER TO TAKE ASPIRIN, 81 MG, TWICE DAILY FOR 4 WEEKS UNLESS OTHERWISE DIRECTED. THIS IS YOUR BLOOD THINNER.. * CALL IF INCREASED PAIN, REDNESS, DRAINAGE OR FEVER GREATER THAT 101. * WEAR JOSÉ ANTONIO HOSE 20 HOURS PER DAY FOR 2 WEEKS. * Prevena- This is a large suction dressing covering your incision. This will help pull any excess drainage from the wound and allow your incision to heal properly. You may shower with this if you can keep the unit outside of the shower. If any bleeding or leakage is noted please call your doctor's office. This will remain on your incision for 7 days and then should be removed. This can be done yourself or by the home nursing staff if applicable. The entire unit is disposable once removed. Once removed, keep incision clean and dry. If redness or drainage is noted, please call your surgeon. . FOLLOW UP VISIT: If appointment is not already scheduled: Please call [facility] to make a follow-up appointment for 2 weeks after your surgery at . Pending Studies at Discharge: No Stand-Alone Forms: My [facility] [employer], Opioid Pain Management, Smoking Cessation Medications and DC Order Prescriptions: New atorvastatin 40 mg Tablet 40 mg PO PM 30 Days Qty: 30 RF: 0 acetaminophen 500 mg Tablet 1,000 mg PO Q8 30 Days Qty: 180 RF: 0 aspirin 81 mg Tablet,Delayed Release (Dr/Ec) 81 mg PO BID 30 Days Qty: 60 RF: 0 oxycodone 5 mg Tablet 5 mg PO Q4H PRN (Reason: pain) Qty: 30 RF: 0 Continued metoprolol tartrate 50 mg Tablet 25 mg PO BID RF: 0 multivitamin Capsule 1 cap PO QAM RF: 0 cetirizine 10 mg Tablet 5 mg PO DAILY PRN (Reason: Allergy Symptoms) RF: 0 atorvastatin 40 mg tablet 40 mg PO HS RF: 0 Discontinued aspirin [Baby Aspirin] 81 mg Tablet,Chewable 81 mg PO QAM RF: 0 Discharge Orders: Discharge Order (Routine); Ordered 07/24/20 Ordered By: Herber Nelson/Other Patient Handouts: Preventing Deep Vein Thrombosis Admission Data Admit Date/Time: 07/23/20 11:15 Attending Provider: Immanuel Coronel Admit Provider: Immanuel Coronel Primary Care Provider: Niki Sofia Other Providers: Ryley Dixon ; Lorena Storey Other Interventions: Discharge Summary Assessment (RN) Last Done: 07/24/20 14:31
[2020-08-07] MEDS ORDERED: INFLUENZA ADMINISTRATION CHARGE ONE (12:21)
[2020-08-07] MEDS ORDERED: INFLUENZA VACCINE HIGH DOSE 65+ 0.5 ML SYR IM ONE (12:21)
== END 2020-07-24 16:33 | disposition home or self-care (01) ==
LOC: 3E 06:14 → ASU 06:14